=== PATIENT | female | born 2000 ===

== ENCOUNTER 2022-08-26 22:34 | Emergency (ER) | payer OTHER ==
[~2022-08-26] VITALS: Ht 154.9 cm; Wt 90.0 kg
[2022-08-27 01:00] VITALS: BP 119/63; PULSE 67; RESP 16
== END 2022-08-27 01:00 | disposition home or self-care (01) ==
LOC: EMS 22:37
DX: S90.121A Contusion of right lesser toe(s) without damage to nail, initial encounter (principal); Y04.2XXA Assault by strike against or bumped into by another person, initial encounter; Y93.89 Activity, other specified; Y92.89 Other specified places as the place of occurrence of the external cause; Y99.8 Other external cause status
CPT/HCPCS: 99283